=== PATIENT | female | born 1980 | race African-American/Black ===

== ENCOUNTER 2016-05-06 18:45 | Emergency (ER) | payer OTHER ==
--- NOTE | ~2016-05-06 | CR173 ---
[facility] A Service of [facility] RADIOLOGY TEXT RESULTS PATIENT: SARAH CHAIREZ LOCATION: [facility]FT[facility] : 76 UNIT #: [id number] AGE: [address]: Claudia Tobar SEX: F ORDER DR: [id number] [place] [id number] [facility]. [place], [place] [address] [id number] E MR#: [id number] Acc #: [id number] NAME: SARAH CHAIREZ. : 1980 SEX: F STUDY DATE/TIME: 05/06/2016 18:55 UNIT: [facility] ROOM: STUDY DESCRIPTION: CR Knee 3 Views Rt Attending Physician: Claudia Tobar P.A.-C. Ordering Physician: Claudia Tobar P.A.-C. Primary Care Physician: Jaime Veloz M.D. MEDICAL IMAGING REPORT This report is preliminary unless electronic signature is present EXAM Right knee, 3 views COMPARISON October 23, 2013. INDICATIONS 36-year-old female with right knee pain and weakness for 1 week. No known injury. FINDINGS There is mild osteophyte formation at the tibial spine. Tiny calcium density seen posterior to the knee joint is stable, measuring up to approximately 4 mm, possibly representing a chronic joint body. There is a large enthesophyte at the superior pole of the patella. There is small to moderate-sized suprapatellar effusion. Bones are anatomically aligned. No evidence of acute fracture or osseous destruction. IMPRESSION 1. No acute fracture or dislocation. 2. Small to moderate suprapatellar effusion. 3. Stable large enthesophyte at the superior pole of the patella. Mild tibial spine osteophyte formation is stable. Stable 4 mm calcium density at the posterior aspect of the knee joint, possibly reflecting a chronic joint body. Dictated by... George Gregory M.D. THIS IS AN ELECTRONICALLY VERIFIED REPORT George Gregory M.D. at 05/09/2016 9:50 AM [facility]/psc [facility] A Service of [facility] RADIOLOGY TEXT RESULTS PATIENT: SARAH CHAIREZ LOCATION: [facility] : 78 UNIT #: [id number] AGE: [address]: Claudia Tobar SEX: F ORDER DR: TD: 05/07/2016 01:58 JOB #: [id number] MEDICAL IMAGING REPORT Page 1 of 1 COPY
[~2016-05-06 18:45] MED LIST: ALAVERT10 MG PO; ALBUTEROL INHALER; ALBUTEROL17 GM INH; AMITRYPTYLINE; AMLODIPINE BESY10 MG PO; ANTIBIOTIC PO; AZITHROMYCIN PO; BENTYL20 MG PO; CARAFATE1 G PO; CELEXA20 MG PO; DICLOFENAC; DICLOFENAC PO; FAMOTIDINE; FAMOTIDINE PO; FLEXERIL; FLEXERIL10 MG PO; HYDROCODONE/APA1 T16; IBUPROFEN800 MG; IBUPROFEN800 MG PO; LORTAB 5/500 TA1 TA1 PO; MEDROL DOSEPAK4 MG PO; MOBIC PO; NAPROSYN500 MG PO; NORFLEX100 M1 PO; NORVASC10 MG PO; OMEPRAZOLE40 MG PO; ORUDIS75 M1 PO; PEPCID AC20 M2 PO; PHENERGAN25 MG PO; PREDNISONE PO; PROAIR HFA8.5 GM INH; PROMETHAZINE DM PO; PROTONIX; PROTONIX PO; PROVERA10 MG PO; ROBAXIN 750750 MG PO; ROBAXIN500 MG PO; TAMIFLU75 M1 PO; TYLENOL #3 PO; VOLTAREN75 MG PO; ZOLOFT PO; ZOLOFT100 MG PO; ZOLOFT50 MG PO
== END 2016-05-06 20:35 | disposition home or self-care (01) ==
LOC: CFTX 18:45
DX: M25.561 Pain in right knee (principal); I10 Essential (primary) hypertension; J45.909 Unspecified asthma, uncomplicated; K21.9 Gastro-esophageal reflux disease without esophagitis; F41.9 Anxiety disorder, unspecified
CPT/HCPCS: 29530; 73562; 99283

== ENCOUNTER 2016-06-30 18:03 | Emergency (ER) | payer OTHER ==
[2016-06-30] MEDS ORDERED: LORTAB 7.5-3251 EACH (18:15)
[2016-06-30] MEDS ORDERED: ZYRTEC (18:16)
[2016-06-30] MEDS ORDERED: FLEXERIL (18:16)
[2016-06-30] MEDS ORDERED: AMITRYPTYLINE PO (18:16)
[2016-06-30] MEDS ORDERED: DICLOFENAC (18:16)
[2016-06-30] MEDS ORDERED: PROTONIX PO (18:17)
== END 2016-06-30 19:01 | disposition home or self-care (01) ==
LOC: SED 18:03
DX: B07.9 Viral wart, unspecified (principal); I10 Essential (primary) hypertension
CPT/HCPCS: 99282

== ENCOUNTER 2016-08-30 23:35 | Emergency (ER) | payer OTHER ==
[~2016-08-30] VITALS: Ht 160 cm; Wt 178.7 kg
--- NOTE | ~2016-08-30 | EKG ---
PATIENT: SARAH CHAIREZ UNIT #: [id number] Ventricular Rate: 88 BPM Atrial Rate: 88 BPM P-R Interval: 182 ms QRS Duration: 78 ms Q-T Interval: 378 ms QTC Calculation(Bezet): 457 ms P [place]: 66 degrees Calculated R [place]: 48 degrees Calculated T [place]: 31 degrees Diagnosis Line: Normal sinus rhythm Diagnosis Line: Normal ECG Diagnosis Line: When compared with ECG of 07-FEB-2016 05:24, Diagnosis Line: No significant change was found Diagnosis Line: Confirmed by ERIS CHUN MD ([id number]) on Diagnosis Line: 09/03/2016 8:39:34 AM INTERPRETING MD: ADIEL WHEELER
--- NOTE | ~2016-08-30 | CR72 ---
[facility]. [facility] A Service of [facility] RADIOLOGY TEXT RESULTS PATIENT: SARAH CHAIREZ LOCATION: SED : 78 UNIT #: [id number] AGE: [address]: Kings Escobar DO SEX: F ORDER DR: [id number] [place] [id number] E MR#: [id number] Acc #: [id number] NAME: SARAH CHAIREZ : 1980 SEX: F STUDY DATE/TIME: 08/31/2016 02:10 UNIT: SED ROOM: STUDY DESCRIPTION: CR Chest Single View Portable Attending Physician: Kings Escobar Ordering Physician: Kings Escobar Primary Care Physician: Jaime Veloz M.D. MEDICAL IMAGING REPORT This report is preliminary unless electronic signature is present. EXAM Portable chest, 08/31 at 02:10 INDICATION Acute onset chest pain, shortness of air and cough tonight. FINDINGS AP portable chest is compared with 02/07/2016. The exam is degraded by obesity and portable technique. The heart remains enlarged. Lungs are grossly clear and there is no pneumothorax. No significant interval change. Dictated by... Adeel Saldana Jr., M.D. THIS IS AN ELECTRONICALLY VERIFIED REPORT Adeel Saldana Jr., M.D. at 08/31/2016 9:22 PM [facility]/paresh TD: 08/31/2016 14:22 JOB #: [id number] MEDICAL IMAGING REPORT Page 1 of 1
[~2016-08-30 23:35] MED LIST changes: +AMITRYPTYLINE PO; +LORTAB 7.5-3251 EACH; +ZYRTEC
[2016-08-31 01:20] LABS: BASOPHIL# 0.1 X10e3 (0-0.3); BASOPHIL% 0.7 % (0-2.5); EOSINOPHIL# 0.2 X10e3 (0-0.7); EOSINOPHIL% 2.1 % (0.0-7.0); HEMATOCRIT 40.5 % (35.0-45.0); HEMOGLOBIN 13.1 gm/dL (12.0-16.0); LYMPHOCYTE# 3.2 X10e3 (1.0-3.5); LYMPHOCYTE% 36.7 % (17.0-45.0); MEAN CELL VOLUME 81.6 FL (83-96); MEAN CORPUSCULAR HEMOGLOBIN 26.4 PG (28-34); MEAN CORPUSCULAR HGB CONC 32.4 g/dL (30-36); MEAN PLATELET VOLUME 8.8 FL (6.5-11.5); MONOCYTE# 0.5 X10e3 (0-1.0); MONOCYTE% 5.9 % (3.0-12.0); NEUTROPHIL# 4.8 X10e3 (1.5-7.1); NEUTROPHIL% 54.6 % (40-75); PLATELET COUNT 284 X10e3 (140-420); RED BLOOD COUNT 4.97 X10e (3.90-5.30); RED CELL DISTRIBUTION WIDTH 13.9 % (11.0-15.5); WHITE BLOOD COUNT 8.8 X10e3 (4.0-10.5)
[2016-08-31 01:22] LABS: DIFF IND NO
[2016-08-31 01:24] LABS: INR 1.1
[2016-08-31 01:31] LABS: ALBUMIN SERUM 4.1 g/dL (3.5-5.0); ALKALINE PHOSPHATASE 64 U/L (32-92); ALT (SGPT) 26 U/L (10-40); AST (SGOT) 19 U/L (10-42); BILIRUBIN, DIRECT <0.1 mg/dL (0.0-0.2); BILIRUBIN,INDIRECT 0.4 mg/dL (0.0-0.9); BILIRUBIN,TOTAL 0.5 mg/dL (0.2-2.0); BLOOD UREA NITROGEN 11 mg/dL (9-23); BUN/CREATININE RATIO 13.75; CARBON DIOXIDE 26 mmol/L (22-31); CHLORIDE 108 mmol/L (100-111); CREATININE SERUM 0.8 mg/dL (0.6-1.4); GLOM FILT RATE Estimated 108.5 mL/min (>60); GLUCOSE FASTING 137 mg/dL (70-110); PARTIAL THROMBOPLASTIN TIME 27.4 SECONDS (25.6-38.1); POTASSIUM 3.6 mmol/L (3.5-5.1); SODIUM 137 mmol/L (135-145)
[2016-08-31 02:16] LABS: POC - CKMB <1.0 ng/mL (0.0-7.9); POC - TROPONIN <0.05 ng/mL (<=0.05)
[2016-09-04 07:06] LABS: POC - CKMB <1.0 ng/mL (0.0-7.9)
[2016-09-04 07:07] LABS: POC - TROPONIN <0.05 ng/mL (<=0.05)
== END 2016-08-31 07:55 ==
LOC: SED 23:35
PROVIDERS: Emergency Medicine
DX: R07.89 Other chest pain (principal); I10 Essential (primary) hypertension; K21.9 Gastro-esophageal reflux disease without esophagitis; G47.30 Sleep apnea, unspecified; E66.9 Obesity, unspecified; Z68.45 Body mass index [BMI] 70 or greater, adult; Z98.890 Other specified postprocedural states; Z79.899 Other long term (current) drug therapy
CPT/HCPCS: 36415; 71010; 80048; 80076; 82553; 84484; 85025; 85610; 85730; 99285

== ENCOUNTER 2016-09-06 00:01 | Emergency (ER) | payer OTHER ==
[~2016-09-06] VITALS: Ht 160 cm; Wt 181.0 kg
--- NOTE | ~2016-09-06 | EKG ---
PATIENT: SARAH CHAIREZ UNIT #: [id number] Ventricular Rate: 80 BPM Atrial Rate: 80 BPM P-R Interval: 184 ms QRS Duration: 78 ms Q-T Interval: 416 ms QTC Calculation(Bezet): 479 ms P [place]: 17 degrees Calculated R [place]: 43 degrees Calculated T [place]: 10 degrees Diagnosis Line: Normal sinus rhythm Diagnosis Line: Normal ECG Diagnosis Line: When compared with ECG of 30-AUG-2016 23:41, Diagnosis Line: No significant change was found Diagnosis Line: Confirmed by SHERRON ACEVEDO MD ([id number]) on Diagnosis Line: 09/13/2016 3:17:07 PM INTERPRETING MD: WINIFRED
--- NOTE | ~2016-09-06 | CR72 ---
[facility] A Service of [facility] RADIOLOGY TEXT RESULTS PATIENT: SARAH CHAIREZ LOCATION: SED : 78 UNIT #: [id number] AGE: [address]: Ramos Mriza MD SEX: F ORDER DR: [id number] [place] [id number] E MR#: [id number] Acc #: [id number] NAME: SARAH CHAIREZ. : 1980 SEX: F STUDY DATE/TIME: 09/06/2016 0:36 UNIT: SED ROOM: STUDY DESCRIPTION: CR Chest Single View Portable Attending Physician: Ramos Mirza M.D. Ordering Physician: Ramos Mirza M.D. Primary Care Physician: Jaime Veloz M.D. MEDICAL IMAGING REPORT This report is preliminary unless electronic signature is present. EXAM AP portable chest. DATE 09/06/2016 HISTORY Chest pain, headache, elevated blood pressure today. History of asthma, enlarged heart, sleep apnea, hypertension. COMPARISON AP portable chest, 08/31/2016. FINDINGS Study is attenuated by body habitus. There is stable cardiac enlargement. Pulmonary vascularity is within normal limits. No pleural effusion, pneumothorax or acute osseous abnormalities are identified. IMPRESSION 1. Study is limited by patient body habitus. 2. Stable borderline cardiac enlargement. 3. No acute chest findings. Dictated by... Zahra Christine M.D. THIS IS AN ELECTRONICALLY VERIFIED REPORT Zahra Christine M.D. at 09/06/2016 9:41 PM JOHNNY/prisca TD: 09/06/2016 16:47 JOB #: [id number] [facility] A Service [facility] RADIOLOGY TEXT RESULTS PATIENT: SARAH CHAIREZ LOCATION: SED : 78 UNIT #: [id number] AGE: [address]: Ramos Mirza MD SEX: F ORDER DR: MEDICAL IMAGING REPORT Page 1 of 1
[2016-09-06] MEDS ORDERED: NORVASC10 MG PO (00:10)
[2016-09-06] MEDS ORDERED: CAPOZIDE PO (00:10)
[2016-09-06] MEDS ORDERED: LOPRESSOR PO (00:10)
[2016-09-06 00:55] LABS: BASOPHIL# 0.1 X10e3 (0-0.3); BASOPHIL% 1.2 % (0-2.5); EOSINOPHIL# 0.4 X10e3 (0-0.7); EOSINOPHIL% 3.4 % (0.0-7.0); HEMATOCRIT 41.3 % (35.0-45.0); HEMOGLOBIN 13.7 gm/dL (12.0-16.0); LYMPHOCYTE# 3.9 X10e3 (1.0-3.5); LYMPHOCYTE% 33.8 % (17.0-45.0); MEAN CELL VOLUME 80.7 FL (83-96); MEAN CORPUSCULAR HEMOGLOBIN 26.7 PG (28-34); MEAN CORPUSCULAR HGB CONC 33.1 g/dL (30-36); MEAN PLATELET VOLUME 8.9 FL (6.5-11.5); MONOCYTE% 8.7 % (3.0-12.0); NEUTROPHIL# 6.1 X10e3 (1.5-7.1); NEUTROPHIL% 52.9 % (40-75); PLATELET COUNT 261 X10e3 (140-420); RED BLOOD COUNT 5.12 X10e (3.90-5.30); RED CELL DISTRIBUTION WIDTH 13.5 % (11.0-15.5); WHITE BLOOD COUNT 11.5 X10e3 (4.0-10.5)
[2016-09-06 00:58] LABS: DIFF IND NO
[2016-09-06 01:09] LABS: ALBUMIN SERUM 4.1 g/dL (3.5-5.0); BILIRUBIN, DIRECT 0.1 mg/dL (0.0-0.2); BILIRUBIN,INDIRECT 0.1 mg/dL (0.0-0.9); BILIRUBIN,TOTAL 0.2 mg/dL (0.2-2.0); BUN/CREATININE RATIO 22.22; CALCIUM SERUM 9.5 mg/dL (8.4-10.2); CREATININE SERUM 0.9 mg/dL (0.6-1.4); GLOM FILT RATE Estimated 94.1 mL/min (>60); POTASSIUM 3.7 mmol/L (3.5-5.1); PROTEIN TOTAL SERUM 8.3 g/dL (6.0-8.3)
[2016-09-06 01:33] LABS: POC - CKMB <1.0 ng/mL (0.0-7.9); POC - TROPONIN <0.05 ng/mL (<=0.05)
== END 2016-09-06 02:01 | disposition home or self-care (01) ==
LOC: SED 00:01
PROVIDERS: Emergency Medicine
DX: I10 Essential (primary) hypertension (principal); K21.9 Gastro-esophageal reflux disease without esophagitis; E03.9 Hypothyroidism, unspecified; G47.30 Sleep apnea, unspecified; Z79.899 Other long term (current) drug therapy
CPT/HCPCS: 36415; 71010; 80048; 80076; 82553; 84484; 85025; 93005; 96374; 99284

== ENCOUNTER 2016-09-07 00:21 | Emergency (ER) | payer OTHER ==
[~2016-09-07] VITALS: Ht 160 cm; Wt 171.0 kg
--- NOTE | ~2016-09-07 | EKG ---
PATIENT: SARAH CHAIREZ UNIT #: [id number] Ventricular Rate: 86 BPM Atrial Rate: 86 BPM P-R Interval: 194 ms QRS Duration: 76 ms Q-T Interval: 396 ms QTC Calculation(Bezet): 473 ms P [place]: 61 degrees Calculated R [place]: 53 degrees Calculated T [place]: 20 degrees Diagnosis Line: Normal sinus rhythm Diagnosis Line: Normal ECG Diagnosis Line: When compared with ECG of 06-SEP-2016 00:49, Diagnosis Line: (unconfirmed) Diagnosis Line: No significant change was found Diagnosis Line: Confirmed by SHERRON ACEVEDO MD ([id number]) on Diagnosis Line: 09/13/2016 3:17:09 PM INTERPRETING MD: WINIFRED
--- NOTE | ~2016-09-07 | CR72 ---
[facility] A Service of [facility] RADIOLOGY TEXT RESULTS PATIENT: SARAH CHAIREZ LOCATION: SED : 78 UNIT #: [id number] AGE: [address]: Ramos Mirza MD SEX: F ORDER DR: [id number] [place] [id number] E MR#: [id number] Acc #: [id number] NAME: SAARH CHAIREZ. : 1980 SEX: F STUDY DATE/TIME: 09/07/2016 1:29 UNIT: SED ROOM: STUDY DESCRIPTION: CR Chest Single View Portable Attending Physician: Ramos Mirza M.D. Ordering Physician: Ramos Mirza M.D. Primary Care Physician: Jaime Veloz M.D. MEDICAL IMAGING REPORT This report is preliminary unless electronic signature is present. EXAMINATION AP portable chest DATE 09/07/2016 HISTORY Acute chest pain today. Additional history of asthma, acid reflux. COMPARISON AP portable chest 09/06/2016. FINDINGS Stable cardiac enlargement. Lung bases are attenuated by body habitus. No definite acute airspace disease is appreciated. Stable heart size. No definite pleural effusion or pneumothorax. IMPRESSION 1. The study is limited secondary to obscuration of lung bases by body habitus. No definite acute airspace disease is seen. Consider PA and lateral chest radiograph follow up. Dictated by... Zahra Christine M.D. THIS IS AN ELECTRONICALLY VERIFIED REPORT Zahra Christine M.D. at 09/07/2016 9:[address] [facility]/greta TD: 09/07/2016 17:03 JOB #: [id number] [facility] A Service of [facility] RADIOLOGY TEXT RESULTS PATIENT: SARAH CHAIREZ LOCATION: SED : 78 UNIT #: [id number] AGE: [address]: Ramos Mirza MD SEX: F ORDER DR: MEDICAL IMAGING REPORT Page 1 of 1
--- NOTE | ~2016-09-07 | CT16 ---
[facility] A Service of [facility] RADIOLOGY TEXT RESULTS PATIENT: SARAH CHAIREZ LOCATION: SED : 78 UNIT #: [id number] AGE: [address]: Ramos Mirza MD SEX: F ORDER DR: [id number] [place] [id number] E MR#: [id number] Acc #: [id number] NAME: SARAH CHAIREZ. : 1980 SEX: F STUDY DATE/TIME: 09/07/2016 3:52 UNIT: SED ROOM: STUDY DESCRIPTION: CT Angio Chest for PE Attending Physician: Ramos Mirza M.D. Ordering Physician: Ramos Mirza M.D. Primary Care Physician: Jaime Veloz M.D. MEDICAL IMAGING REPORT This report is preliminary unless electronic signature is present. EXAMINATION CTA chest, PE protocol. DATE 09/07/2016 HISTORY Chest pain which began yesterday. Elevated D-dimer 228. History of gastric reflux. COMPARISON CTA chest PE protocol, 02/07/2016. PROCEDURE 2.5 mm axial images through the chest after IV contrast administration. 3-D coronal MIP reformatted images were obtained. This CT exam was performed with one or more of the following radiation dose reduction techniques: automatic exposure control, adjustment of mA and/or kV according to patient size, and iterative reconstruction. FINDINGS The study is attenuated secondary to patient body habitus. No pulmonary embolism is seen. No evidence of thoracic aortic aneurysm or aortic dissection. Heart size is upper limits normal. No pericardial effusion. No pleural effusion. No pneumothorax. Imaged thyroid gland appears normal. Lungs are clear. Included portions of the upper abdominal organs are within normal limits. No acute osseous abnormalities are identified. IMPRESSION 1. No acute chest findings. No evidence of pulmonary embolism. 2. Stable borderline cardiac enlargement. 3. The study is limited secondary to attenuation by body habitus. [facility] A Service of [facility] RADIOLOGY TEXT RESULTS PATIENT: SARAH CHAIREZ LOCATION: SED : 78 UNIT #: [id number] AGE: [address]: Ramos Mirza MD SEX: F ORDER DR: Dictated by... Zahra Christine M.D. THIS IS AN ELECTRONICALLY VERIFIED REPORT Zahra Christine M.D. at 09/07/2016 9:39 PM ABEL[facility]/prisca TD: 09/07/2016 19:04 JOB #: [id number] MEDICAL IMAGING REPORT Page 1 of 1
[~2016-09-07 00:21] MED LIST changes: +CAPOZIDE PO; +LOPRESSOR PO
[2016-09-07 01:28] LABS: BASOPHIL# 0.1 X10e3 (0-0.3); DIFF IND NO; EOSINOPHIL# 0.1 X10e3 (0-0.7); HEMATOCRIT 39.3 % (35.0-45.0); HEMOGLOBIN 13.2 gm/dL (12.0-16.0); LYMPHOCYTE# 2.7 X10e3 (1.0-3.5); LYMPHOCYTE% 24.9 % (17.0-45.0); MEAN CELL VOLUME 80.1 FL (83-96); MEAN CORPUSCULAR HEMOGLOBIN 26.8 PG (28-34); MEAN CORPUSCULAR HGB CONC 33.5 g/dL (30-36); MEAN PLATELET VOLUME 8.3 FL (6.5-11.5); MONOCYTE# 0.7 X10e3 (0-1.0); MONOCYTE% 6.6 % (3.0-12.0); NEUTROPHIL# 7.2 X10e3 (1.5-7.1); NEUTROPHIL% 66.5 % (40-75); PLATELET COUNT 316 X10e3 (140-420); RED BLOOD COUNT 4.91 X10e (3.90-5.30); RED CELL DISTRIBUTION WIDTH 13.6 % (11.0-15.5); WHITE BLOOD COUNT 10.8 X10e3 (4.0-10.5)
[2016-09-07 01:32] LABS: INR 1.2; PROTHROMBIN TIME (PATIENT) 13.3 SECONDS (9.5-12.4)
[2016-09-07 01:38] LABS: POC - CKMB <1.0 ng/mL (0.0-7.9); POC - TROPONIN <0.05 ng/mL (<=0.05)
[2016-09-07 01:39] LABS: PARTIAL THROMBOPLASTIN TIME 26.1 SECONDS (25.6-38.1)
[2016-09-07 01:41] LABS: ALBUMIN SERUM 4.1 g/dL (3.5-5.0); ALKALINE PHOSPHATASE 67 U/L (32-92); ALT (SGPT) 29 U/L (10-40); AST (SGOT) 23 U/L (10-42); BILIRUBIN, DIRECT <0.1 mg/dL (0.0-0.2); BILIRUBIN,INDIRECT 0.2 mg/dL (0.0-0.9); BILIRUBIN,TOTAL 0.3 mg/dL (0.2-2.0); BLOOD UREA NITROGEN 21 mg/dL (9-23); CALCIUM SERUM 9.9 mg/dL (8.4-10.2); CARBON DIOXIDE 30 mmol/L (22-31); CHLORIDE 102 mmol/L (100-111); GLOM FILT RATE Estimated 82.8 mL/min (>60); GLUCOSE FASTING 138 mg/dL (70-110); POTASSIUM 3.2 mmol/L (3.5-5.1); PROTEIN TOTAL SERUM 8.4 g/dL (6.0-8.3); SODIUM 139 mmol/L (135-145)
[2016-09-07 03:34] LABS: POC - TROPONIN <0.05 ng/mL (<=0.05)
== END 2016-09-07 05:40 | disposition home or self-care (01) ==
LOC: SED 00:21
PROVIDERS: Emergency Medicine
DX: R07.89 Other chest pain (principal); I10 Essential (primary) hypertension; E87.6 Hypokalemia; J45.909 Unspecified asthma, uncomplicated; F41.9 Anxiety disorder, unspecified; Z79.899 Other long term (current) drug therapy
CPT/HCPCS: 36415; 71010; 71275; 80048; 80076; 82553; 84484; 85025; 85379; 85610; 85730; 93005; 96374; 99285; J2270; Q9967

== ENCOUNTER 2016-09-17 01:18 | Emergency (ER) | payer OTHER ==
[~2016-09-17] VITALS: Ht 160 cm; Wt 172.4 kg
== END 2016-09-17 02:49 | disposition home or self-care (01) ==
LOC: SED 01:18
DX: I10 Essential (primary) hypertension (principal); J45.909 Unspecified asthma, uncomplicated; F41.9 Anxiety disorder, unspecified; G43.909 Migraine, unspecified, not intractable, without status migrainosus; G47.33 Obstructive sleep apnea (adult) (pediatric)
CPT/HCPCS: 99283